=== PATIENT | female | born 1950 | race Caucasian/White ===

== ENCOUNTER 2018-01-14 16:30 | Inpatient (IN) | payer MEDICARE, OTHER ==
[2018-01-14] MEDS: SOD CHLORIDE 0.9% 1,000 ML IV (16:47)
[2018-01-14] MEDS: ONDANSETRON 4 MG INJ IV ×2 (16:47→17:54)
[2018-01-14] MEDS: NALOXONE (0.4 MG/ML) INJ IV (16:47)
[2018-01-14 16:59] LABS: ADD MAN DIFF? NO
[2018-01-14 17:01] LABS: BASOPHIL # 0.1 10^3/ul (0.0-0.1); BASOPHILS % 0.5 % (0.0-2.0); EOSINOPHILS # 0.1 10^3/ul (0.0-0.5); EOSINOPHILS % 0.5 % (0.0-7.0); HEMATOCRIT 36.7 % (37.0-47.0); HEMOGLOBIN 11.5 g/dl (12.0-16.0); LYMPHOCYTES # 2.3 10^3/ul (0.8-2.9); LYMPHOCYTES % 14.9 % (15.0-51.0); MEAN CORPUSCULAR HGB CONC 31.3 g/dl (32.0-37.0); MEAN CORPUSCULAR VOLUME 92.7 fl (82.0-101.0); MEAN PLATELET VOLUME 10.2 fl (7.4-10.4); MONOCYTE # 1.5 10^3/ul (0.3-0.9); MONOCYTES % 10.2 % (0.0-11.0); NEUTROPHIL # 11.1 10^3/ul (1.6-7.5); NEUTROPHILS % 73.2 % (39.0-77.0); PLATELET COUNT 340 10^3/UL (140-415); RED BLOOD COUNT 3.96 10^6/ul (4.20-5.40); RED CELL DISTRIBUTION WIDTH 15.2 % (11.5-14.5)
[2018-01-14 17:01] LABS: WHITE BLOOD COUNT 15.2 10^3/ul (4.8-10.8)
[2018-01-14 17:31] LABS: ALANINE AMINOTRANSFERASE 19 IU/L (13-69); ALBUMIN 4.1 g/dl (3.3-4.9); ALBUMIN/GLOBULIN RATIO 1.41; ALKALINE PHOSPHATASE 87 IU/L (42-121); ANION GAP 32 (8-16); ASPARTATE AMINO TRANSFERASE 50 IU/L (15-46); BILIRUBIN,INDIRECT 0.1 mg/dl (0-1.1); BILIRUBIN,TOTAL 0.1 mg/dl (0.2-1.3); BLOOD UREA NITROGEN 69 mg/dl (7-20); CALCIUM 8.2 mg/dl (8.4-10.2); CARBON DIOXIDE 12 mmol/L (21-31); CHLORIDE 101 mmol/L (97-110); GLUCOSE 66 mg/dl (70-220); POTASSIUM 4.5 mmol/L (3.5-5.1); SODIUM 140 mmol/L (135-144)
[2018-01-14 17:33] LABS: ACETAMINOPHEN < 10.0 ug/ml (10.0-30.0); ETHANOL < 10.0 mg/dl; SALICYLATE < 1.0 mg/dl (5.0-30.0)
[2018-01-14] MEDS: NALOXONE 2 MG SYG IV (17:49)
[2018-01-14 17:59] LABS: AADO2 Arterial 20.2 mmHg (7.0-24.0); Allen Test ACCEPTAB; Arterial Base Excess -16.9 mmol/L (-3.0-3); Arterial Blood Gas Oxygen Sat 95.2 mmHG (95.0-98.0); Arterial COHb 0.3 % (0.0-3.0); Arterial Fraction of Oxyhgb 94.7 % (93.0-99.0); Arterial HCO3 11.5 mmol/L (22.0-26.0); Arterial MetHb 0.2 % (0.0-1.5); Arterial Total Hemglobin 12.4 g/dl (12.0-18.0); Arterial pCO2 36.1 mmhg (35-45); MODE ROOM AIR; Site Right Radial
[2018-01-14 18:13] LABS: BENZODIAZEPINES Negative (NEGATIVE)
[2018-01-14 18:14] LABS: ADD UMIC YES; UR ASCORBIC ACID NEGATIVE (NEGATIVE); UR BACTERIA FEW /HPF (NONE SEEN); UR BILIRUBIN (Dip) NEGATIVE (NEGATIVE); UR BLOOD (Dip) 2+ mg/dL (NEGATIVE); UR CLARITY CLOUDY (CLEAR); UR COLOR YELLOW (YELLOW); UR GLUCOSE (Dip) NEGATIVE (NEGATIVE); UR KETONES (Dip) 2+ mg/dL (NEGATIVE); UR LEUKOCYTE ESTERASE (Dip) 3+ Leu/ul (NEGATIVE); UR NITRITE (Dip) NEGATIVE (NEGATIVE); UR RBC 1 /HPF (0-5); UR SPECIFIC GRAVITY (Dip) 1.014 (1.003-1.030); UR TOTAL PROTEIN (Dip) 1+ mg/dl (NEGATIVE); UR UROBILINOGEN (Dip) NEGATIVE (NEGATIVE); UR WBC > 182 /HPF (0-5)
[2018-01-14 18:16] LABS: AMPHETAMINE/METHAMPHETAMINE Negative (NEGATIVE); BARBITURATES Negative (NEGATIVE); CANNABINOIDS Negative (NEGATIVE); COCAINE Negative (NEGATIVE); OPIATES Negative (NEGATIVE)
[2018-01-14 18:21] LABS: FREE THYROXINE INDEX (Calc) 1.61 ug/ml (0.65-3.89); T3 UPTAKE 38.4 % (23.5-40.5); T4 (THYROXINE) 4.2 ug/dl (5.5-11.0)
[2018-01-14] MEDS: DEXTROSE 50% 50 ML SYRINGE IV (18:38)
[2018-01-14] MEDS: LORAZEPAM 2 MG INJ IV (18:38)
[2018-01-14 19:07] LABS: LACTIC ACID 0.6 mmol/L (0.5-2.0)
[2018-01-14 19:20] LABS: TROPONIN-I 0.013 ng/ml (0.00-0.12)
[2018-01-14] MEDS: PIPER-TAZO 3.375 GM IV (PMX) 100 ML IVPB (19:32)
[2018-01-14] MEDS: VANCOMYCIN 1 GM (PMX) 250 ML IVPB (19:33)
[2018-01-14] MEDS ORDERED: NORepinephrine 8MG/250 ML (PMX 250 ML IV (20:00)
[2018-01-14] MEDS: LACTATED RINGER'S 1,000 ML IV ×3 (20:36)
[2018-01-14] MEDS ORDERED: VANCOMYCIN IV PER PHARMACY XX (22:00)
[2018-01-14] MEDS: DEXAMETHASONE 4 MG/ML 1 ML INJ IV (22:02)
[2018-01-14 22:12] LABS: LACTIC ACID < 0.5 mmol/L (0.5-2.0)
[2018-01-14 23:06] LABS: LACTIC ACID 3.5 mmol/L (0.5-2.0)
[2018-01-15] MEDS: VANCOMYCIN 1 GM in 250 ML IVPB ×2 (01:00→03:43)
[2018-01-15] MEDS: PIPER-TAZO 2.25 GM (PMX) 50 ML IVPB ×3 (06:58→21:48)
[2018-01-15] MEDS: LEVOTHYROXINE 100 MCG TAB PO (06:59)
[2018-01-15] MEDS: LIOTHYRONINE 5 MCG TAB PO (08:12)
[2018-01-15] MEDS: predniSONE 10 MG TAB PO (08:12)
[2018-01-15 08:23] LABS: LACTIC ACID < 0.5 mmol/L (0.5-2.0)
[2018-01-15 09:05] LABS: AADO2 Arterial 90.5 mmHg (7.0-24.0); Allen Test ACCEPTAB; Arterial Base Excess -17.4 mmol/L (-3.0-3); Arterial Blood Gas Oxygen Sat 97.8 mmHG (95.0-98.0); Arterial COHb 0.4 % (0.0-3.0); Arterial Fraction of Oxyhgb 97.2 % (93.0-99.0); Arterial HCO3 9.8 mmol/L (22.0-26.0); Arterial MetHb 0.2 % (0.0-1.5); Arterial Total Hemglobin 11.1 g/dl (12.0-18.0); Arterial pCO2 27.8 mmhg (35-45); MODE NASAL CANNULA; Site Right Radial
[2018-01-15] MEDS: LACTATED RINGER'S 500 ML IV ×2 (10:06→15:50)
[2018-01-15] MEDS: HYDROCORTISONE 100 MG INJ IV ×3 (10:13→21:48)
[2018-01-15] MEDS: ALBUTEROL 0.083% (NEB) 2.5 MG/3 ML AMP HHN (11:47)
[2018-01-15 14:52] LABS: ANION GAP 28 (8-16); BLOOD UREA NITROGEN 57 mg/dl (7-20); CALCIUM 8.3 mg/dl (8.4-10.2); CARBON DIOXIDE 11 mmol/L (21-31); CHLORIDE 112 mmol/L (97-110); CREATININE 2.28 mg/dl (0.44-1.00); GLUCOSE 93 mg/dl (70-220); POTASSIUM 4.3 mmol/L (3.5-5.1); SODIUM 147 mmol/L (135-144)
[2018-01-16 03:52] LABS: AADO2 Arterial 72.2 mmHg (7.0-24.0); Allen Test ACCEPTAB; Arterial Base Excess -16.3 mmol/L (-3.0-3); Arterial Blood Gas Oxygen Sat 98.3 mmHG (95.0-98.0); Arterial COHb 0.2 % (0.0-3.0); Arterial Fraction of Oxyhgb 97.9 % (93.0-99.0); Arterial HCO3 9.9 mmol/L (22.0-26.0); Arterial MetHb 0.2 % (0.0-1.5); Arterial pCO2 25.5 mmhg (35-45); MODE NASAL CANNULA; Site Right Radial
[2018-01-16] MEDS: PIPER-TAZO 2.25 GM (PMX) 50 ML IVPB ×3 (05:25→21:03)
[2018-01-16] MEDS: HYDROCORTISONE 100 MG INJ IV ×3 (05:26→21:03)
[2018-01-16 05:44] LABS: ADD MAN DIFF? NO
[2018-01-16 05:54] LABS: BASOPHIL # 0.1 10^3/ul (0.0-0.1); BASOPHILS % 0.4 % (0.0-2.0); HEMATOCRIT 37.2 % (37.0-47.0); HEMOGLOBIN 11.6 g/dl (12.0-16.0); LYMPHOCYTES # 0.9 10^3/ul (0.8-2.9); LYMPHOCYTES % 6.4 % (15.0-51.0); MEAN CORPUSCULAR HEMOGLOBIN 28.6 pg (29.0-33.0); MEAN CORPUSCULAR HGB CONC 31.2 g/dl (32.0-37.0); MEAN CORPUSCULAR VOLUME 91.9 fl (82.0-101.0); MEAN PLATELET VOLUME 10.4 fl (7.4-10.4); MONOCYTE # 0.9 10^3/ul (0.3-0.9); MONOCYTES % 5.9 % (0.0-11.0); NEUTROPHIL # 12.3 10^3/ul (1.6-7.5); NEUTROPHILS % 85.9 % (39.0-77.0); PLATELET COUNT 335 10^3/UL (140-415); RED BLOOD COUNT 4.05 10^6/ul (4.20-5.40); RED CELL DISTRIBUTION WIDTH 15.9 % (11.5-14.5)
[2018-01-16 05:54] LABS: WHITE BLOOD COUNT 14.3 10^3/ul (4.8-10.8)
[2018-01-16 06:11] LABS: ALANINE AMINOTRANSFERASE 45 IU/L (13-69); ALBUMIN 3.9 g/dl (3.3-4.9); ALKALINE PHOSPHATASE 106 IU/L (42-121); ANION GAP 26 (8-16); ASPARTATE AMINO TRANSFERASE 56 IU/L (15-46); BLOOD UREA NITROGEN 34 mg/dl (7-20); CALCIUM 9.5 mg/dl (8.4-10.2); CARBON DIOXIDE 12 mmol/L (21-31); CHLORIDE 122 mmol/L (97-110); CREATININE 1.31 mg/dl (0.44-1.00); GLUCOSE 122 mg/dl (70-220); POTASSIUM 3.9 mmol/L (3.5-5.1); SODIUM 156 mmol/L (135-144); TOTAL PROTEIN 6.9 g/dl (6.1-8.1)
[2018-01-16] MEDS: SODIUM BICARBONATE (IV ADD) 50 MEQ in DEXTROSE 5%-0.45% NACL 1,000 ML IV (06:14)
[2018-01-16] MEDS: LEVOTHYROXINE 100 MCG TAB PO (07:00)
[2018-01-16] MEDS ORDERED: METHYLPREDNISOLONE 40 MG INJ IV (08:30)
[2018-01-16] MEDS: SALMETEROL/FLUTICASONE 250/50 INHA INH ×2 (09:00→20:13)
[2018-01-16] MEDS: LEVOFLOXACIN 500MG/D5W (PMX) 100 ML IVPB (09:12)
[2018-01-16] MEDS: DEXTROSE 5% 500 ML IV (09:12)
[2018-01-16] MEDS: LACTATED RINGER'S 250 ML IV (10:24)
[2018-01-16] MEDS: OXCARBAZEPINE 300 MG TAB PO ×2 (10:52→20:12)
[2018-01-16] MEDS: SERTRALINE 100 MG TAB PO (10:52)
[2018-01-16] MEDS: TOBRAMYCIN 0.3% 5 ML OPH BOTH EYES ×4 (10:52→20:13)
[2018-01-16] MEDS: VANCOMYCIN 750 MG in DEXTROSE 5% 150 ML IVPB (12:07)
[2018-01-16] MEDS: LIOTHYRONINE 5 MCG TAB PO (13:55)
[2018-01-16] MEDS: LAMOTRIGINE 100 MG TAB PO ×2 (13:55→20:12)
[2018-01-16] MEDS: ATORVASTATIN 20 MG TAB PO (20:12)
[2018-01-17] MEDS: SODIUM BICARBONATE (IV ADD) 50 MEQ in DEXTROSE 5%-0.45% NACL 1,000 ML IV (04:26)
[2018-01-17 05:13] LABS: AADO2 Arterial 79.1 mmHg (7.0-24.0); Allen Test ACCEPTAB; Arterial Base Excess -4.6 mmol/L (-3.0-3); Arterial Blood Gas Oxygen Sat 95.7 mmHG (95.0-98.0); Arterial COHb 0.5 % (0.0-3.0); Arterial Fraction of Oxyhgb 94.8 % (93.0-99.0); Arterial HCO3 19.7 mmol/L (22.0-26.0); Arterial MetHb 0.4 % (0.0-1.5); Arterial Total Hemglobin 7.7 g/dl (12.0-18.0); MODE NASAL CANNULA; Site Right Radial
[2018-01-17] MEDS: HYDROCORTISONE 100 MG INJ IV ×3 (06:15→23:31)
[2018-01-17] MEDS: LEVOTHYROXINE 100 MCG TAB PO (06:15)
[2018-01-17] MEDS: PIPER-TAZO 2.25 GM (PMX) 50 ML IVPB (06:15)
[2018-01-17 06:29] LABS: ADD MAN DIFF? NO
[2018-01-17 06:35] LABS: BASOPHILS % 0.2 % (0.0-2.0); HEMOGLOBIN 11.3 g/dl (12.0-16.0); LYMPHOCYTES # 1.2 10^3/ul (0.8-2.9); LYMPHOCYTES % 12.4 % (15.0-51.0); MEAN CORPUSCULAR HEMOGLOBIN 28.6 pg (29.0-33.0); MEAN CORPUSCULAR HGB CONC 32.3 g/dl (32.0-37.0); MEAN CORPUSCULAR VOLUME 88.6 fl (82.0-101.0); MEAN PLATELET VOLUME 10.7 fl (7.4-10.4); MONOCYTE # 0.9 10^3/ul (0.3-0.9); MONOCYTES % 9.5 % (0.0-11.0); NEUTROPHIL # 7.5 10^3/ul (1.6-7.5); NEUTROPHILS % 76.8 % (39.0-77.0); PLATELET COUNT 295 10^3/UL (140-415); RED BLOOD COUNT 3.95 10^6/ul (4.20-5.40); RED CELL DISTRIBUTION WIDTH 16.2 % (11.5-14.5)
[2018-01-17 06:35] LABS: WHITE BLOOD COUNT 9.8 10^3/ul (4.8-10.8)
[2018-01-17 06:58] LABS: LACTIC ACID 0.8 mmol/L (0.5-2.0)
[2018-01-17 06:58] LABS: AMMONIA 23 umol/l (9-30)
[2018-01-17 07:04] LABS: ALANINE AMINOTRANSFERASE 37 IU/L (13-69); ALBUMIN 3.1 g/dl (3.3-4.9); ALBUMIN/GLOBULIN RATIO 1.14; ALKALINE PHOSPHATASE 101 IU/L (42-121); ANION GAP 19 (8-16); ASPARTATE AMINO TRANSFERASE 31 IU/L (15-46); BILIRUBIN,INDIRECT 0.1 mg/dl (0-1.1); BILIRUBIN,TOTAL 0.1 mg/dl (0.2-1.3); BLOOD UREA NITROGEN 20 mg/dl (7-20); CALCIUM 9.9 mg/dl (8.4-10.2); CARBON DIOXIDE 21 mmol/L (21-31); CHLORIDE 121 mmol/L (97-110); CREATININE 0.89 mg/dl (0.44-1.00); GLUCOSE 122 mg/dl (70-220); POTASSIUM 3.4 mmol/L (3.5-5.1); SODIUM 158 mmol/L (135-144); TOTAL PROTEIN 5.8 g/dl (6.1-8.1)
[2018-01-17] MEDS: SALMETEROL/FLUTICASONE 250/50 INHA INH ×2 (09:32→22:09)
[2018-01-17] MEDS: LEVOFLOXACIN 500MG/D5W (PMX) 100 ML IVPB (09:33)
[2018-01-17] MEDS: LIOTHYRONINE 5 MCG TAB PO (09:34)
[2018-01-17] MEDS: OXCARBAZEPINE 300 MG TAB PO ×2 (09:34→22:43)
[2018-01-17] MEDS: SERTRALINE 100 MG TAB PO (09:34)
[2018-01-17] MEDS: LAMOTRIGINE 100 MG TAB PO ×2 (09:35→22:38)
[2018-01-17] MEDS: TOBRAMYCIN 0.3% 5 ML OPH BOTH EYES ×4 (09:36→22:08)
[2018-01-17] MEDS: DEXTROSE 5% 1,000 ML IV ×2 (10:32→22:25)
[2018-01-17] MEDS: PIPER-TAZO 3.375 GM IV (PMX) 100 ML IVPB ×3 (12:18→23:32)
[2018-01-17] MEDS: POTASSIUM CHLORIDE (SR) 20 MEQ TAB PO (12:58)
[2018-01-17] MEDS: VANCOMYCIN 1.25 GM in SOD CHLORIDE 0.9% 250 ML IVPB (13:06)
[2018-01-17] MEDS: MUPIROCIN 2% 22 GM OINT TOP ×2 (13:30→23:32)
[2018-01-17] MEDS: ATORVASTATIN 20 MG TAB PO (22:38)
[2018-01-18] MEDS: LEVOTHYROXINE 100 MCG TAB PO (06:38)
[2018-01-18] MEDS: HYDROCORTISONE 100 MG INJ IV ×3 (06:38→21:47)
[2018-01-18] MEDS: PIPER-TAZO 3.375 GM IV (PMX) 100 ML IVPB ×2 (06:38→11:58)
[2018-01-18] MEDS: DEXTROSE 5% 1,000 ML IV ×2 (06:51→17:16)
[2018-01-18] MEDS: LEVOFLOXACIN 500MG/D5W (PMX) 100 ML IVPB (08:25)
[2018-01-18] MEDS: LIOTHYRONINE 5 MCG TAB PO (08:25)
[2018-01-18] MEDS: LAMOTRIGINE 100 MG TAB PO ×2 (08:25→21:45)
[2018-01-18] MEDS: SERTRALINE 100 MG TAB PO (08:26)
[2018-01-18] MEDS: OXCARBAZEPINE 300 MG TAB PO ×2 (08:26→21:46)
[2018-01-18] MEDS: TOBRAMYCIN 0.3% 5 ML OPH BOTH EYES ×4 (08:27→21:46)
[2018-01-18] MEDS: MUPIROCIN 2% 22 GM OINT TOP ×2 (08:27→21:46)
[2018-01-18] MEDS: SALMETEROL/FLUTICASONE 250/50 INHA INH ×2 (08:28→21:45)
[2018-01-18 09:24] LABS: ADD MAN DIFF? NO
[2018-01-18 09:35] LABS: BASOPHIL # 0.1 10^3/ul (0.0-0.1); BASOPHILS % 0.4 % (0.0-2.0); EOSINOPHILS % 0.3 % (0.0-7.0); HEMATOCRIT 36.3 % (37.0-47.0); HEMOGLOBIN 12.1 g/dl (12.0-16.0); LYMPHOCYTES # 1.4 10^3/ul (0.8-2.9); LYMPHOCYTES % 11.8 % (15.0-51.0); MEAN CORPUSCULAR HGB CONC 33.3 g/dl (32.0-37.0); MEAN CORPUSCULAR VOLUME 87.1 fl (82.0-101.0); MEAN PLATELET VOLUME 10.3 fl (7.4-10.4); MONOCYTE # 0.7 10^3/ul (0.3-0.9); MONOCYTES % 6.1 % (0.0-11.0); NEUTROPHIL # 9.2 10^3/ul (1.6-7.5); NEUTROPHILS % 80.4 % (39.0-77.0); PLATELET COUNT 300 10^3/UL (140-415); RED BLOOD COUNT 4.17 10^6/ul (4.20-5.40)
[2018-01-18 09:35] LABS: WHITE BLOOD COUNT 11.5 10^3/ul (4.8-10.8)
[2018-01-18 10:29] LABS: PHOSPHORUS 1.4 mg/dl (2.5-4.9)
[2018-01-18 10:29] LABS: MAGNESIUM 2.2 mg/dl (1.7-2.5)
[2018-01-18 11:14] LABS: ANION GAP 11 (8-16); BLOOD UREA NITROGEN 18 mg/dl (7-20); CALCIUM 9.5 mg/dl (8.4-10.2); CARBON DIOXIDE 25 mmol/L (21-31); CHLORIDE 115 mmol/L (97-110); CREATININE 0.72 mg/dl (0.44-1.00); GLUCOSE 142 mg/dl (70-220); POTASSIUM 3.3 mmol/L (3.5-5.1); SODIUM 148 mmol/L (135-144)
[2018-01-18] MEDS: POTASSIUM PHOSPHATE 40 MEQ in SOD CHLORIDE 0.9% 250 ML IVPB (13:10)
[2018-01-18] MEDS: ATORVASTATIN 20 MG TAB PO (21:46)
[2018-01-19] MEDS: HYDROCORTISONE 100 MG INJ IV (06:12)
[2018-01-19] MEDS: LEVOTHYROXINE 100 MCG TAB PO (06:12)
[2018-01-19] MEDS: DEXTROSE 5% 1,000 ML IV ×2 (06:36→09:25)
[2018-01-19 09:12] LABS: ADD MAN DIFF? NO
[2018-01-19] MEDS: SALMETEROL/FLUTICASONE 250/50 INHA INH ×2 (09:24→20:26)
[2018-01-19] MEDS: LEVOFLOXACIN 500MG/D5W (PMX) 100 ML IVPB ×2 (09:24→20:00)
[2018-01-19] MEDS: LIOTHYRONINE 5 MCG TAB PO (09:24)
[2018-01-19] MEDS: TOBRAMYCIN 0.3% 5 ML OPH BOTH EYES ×4 (09:24→20:25)
[2018-01-19] MEDS: MUPIROCIN 2% 22 GM OINT TOP ×2 (09:25→20:25)
[2018-01-19] MEDS: LAMOTRIGINE 100 MG TAB PO ×2 (09:25→20:25)
[2018-01-19] MEDS: OXCARBAZEPINE 300 MG TAB PO ×2 (09:25→20:25)
[2018-01-19] MEDS: SERTRALINE 100 MG TAB PO (09:25)
[2018-01-19 09:40] LABS: BASOPHILS % 0.3 % (0.0-2.0); HEMOGLOBIN 12.4 g/dl (12.0-16.0); LYMPHOCYTES # 1.2 10^3/ul (0.8-2.9); LYMPHOCYTES % 8.5 % (15.0-51.0); MEAN CORPUSCULAR HEMOGLOBIN 28.3 pg (29.0-33.0); MEAN CORPUSCULAR HGB CONC 32.6 g/dl (32.0-37.0); MEAN CORPUSCULAR VOLUME 86.8 fl (82.0-101.0); MEAN PLATELET VOLUME 10.5 fl (7.4-10.4); MONOCYTE # 0.8 10^3/ul (0.3-0.9); MONOCYTES % 5.8 % (0.0-11.0); NEUTROPHIL # 12.2 10^3/ul (1.6-7.5); NEUTROPHILS % 84.2 % (39.0-77.0); PLATELET COUNT 316 10^3/UL (140-415); RED BLOOD COUNT 4.38 10^6/ul (4.20-5.40); RED CELL DISTRIBUTION WIDTH 16.2 % (11.5-14.5)
[2018-01-19 09:40] LABS: WHITE BLOOD COUNT 14.5 10^3/ul (4.8-10.8)
[2018-01-19 09:45] LABS: ANION GAP 15 (8-16); BLOOD UREA NITROGEN 21 mg/dl (7-20); CALCIUM 9.6 mg/dl (8.4-10.2); CARBON DIOXIDE 24 mmol/L (21-31); CHLORIDE 113 mmol/L (97-110); CREATININE 0.81 mg/dl (0.44-1.00); GLUCOSE 140 mg/dl (70-220); SODIUM 149 mmol/L (135-144)
[2018-01-19] MEDS: POTASSIUM CHLORIDE 100 ML IVPB ×3 (16:00→23:10)
[2018-01-19] MEDS: ATORVASTATIN 20 MG TAB PO (20:24)
[2018-01-20] MEDS: POTASSIUM CHLORIDE 100 ML IVPB (02:45)
[2018-01-20] MEDS: LEVOTHYROXINE 100 MCG TAB PO (06:18)
[2018-01-20 08:18] LABS: ADD MAN DIFF? NO
[2018-01-20 08:22] LABS: WHITE BLOOD COUNT 17.3 10^3/ul (4.8-10.8)
[2018-01-20 08:22] LABS: BASOPHIL # 0.1 10^3/ul (0.0-0.1); BASOPHILS % 0.4 % (0.0-2.0); EOSINOPHILS # 0.3 10^3/ul (0.0-0.5); EOSINOPHILS % 1.8 % (0.0-7.0); HEMATOCRIT 37.7 % (37.0-47.0); HEMOGLOBIN 12.3 g/dl (12.0-16.0); LYMPHOCYTES # 1.9 10^3/ul (0.8-2.9); LYMPHOCYTES % 11.2 % (15.0-51.0); MEAN CORPUSCULAR HEMOGLOBIN 28.5 pg (29.0-33.0); MEAN CORPUSCULAR HGB CONC 32.6 g/dl (32.0-37.0); MEAN CORPUSCULAR VOLUME 87.5 fl (82.0-101.0); MEAN PLATELET VOLUME 10.4 fl (7.4-10.4); MONOCYTE # 1.2 10^3/ul (0.3-0.9); MONOCYTES % 6.7 % (0.0-11.0); NEUTROPHIL # 13.6 10^3/ul (1.6-7.5); NUCLEATED RED BLOOD CELLS% 0.1 /100WBC (0.0-0.0); PLATELET COUNT 293 10^3/UL (140-415); RED BLOOD COUNT 4.31 10^6/ul (4.20-5.40); RED CELL DISTRIBUTION WIDTH 16.1 % (11.5-14.5)
[2018-01-20] MEDS: SALMETEROL/FLUTICASONE 250/50 INHA INH (08:29)
[2018-01-20] MEDS: LEVOFLOXACIN 500MG/D5W (PMX) 100 ML IVPB (08:29)
[2018-01-20] MEDS: DEXTROSE 5% 1,000 ML IV (08:29)
[2018-01-20] MEDS: MUPIROCIN 2% 22 GM OINT TOP (08:29)
[2018-01-20] MEDS: TOBRAMYCIN 0.3% 5 ML OPH BOTH EYES ×2 (08:29→14:24)
[2018-01-20] MEDS: LIOTHYRONINE 5 MCG TAB PO (08:30)
[2018-01-20] MEDS: predniSONE 20 MG TAB PO (08:30)
[2018-01-20] MEDS: SERTRALINE 100 MG TAB PO (08:30)
[2018-01-20] MEDS: OXCARBAZEPINE 300 MG TAB PO (08:30)
[2018-01-20] MEDS: LAMOTRIGINE 100 MG TAB PO (08:30)
[2018-01-20 08:56] LABS: ANION GAP 15 (8-16); BLOOD UREA NITROGEN 18 mg/dl (7-20); CALCIUM 8.9 mg/dl (8.4-10.2); CARBON DIOXIDE 23 mmol/L (21-31); CHLORIDE 111 mmol/L (97-110); CREATININE 0.69 mg/dl (0.44-1.00); GLUCOSE 124 mg/dl (70-220); POTASSIUM 3.7 mmol/L (3.5-5.1); SODIUM 145 mmol/L (135-144)
[2018-01-20 09:01] LABS: PHOSPHORUS 2.5 mg/dl (2.5-4.9)
[2018-01-20] MEDS: hydrALAzine 20 MG INJ IV (14:30)
== END 2018-01-20 15:57 | DRG 871 ==
LOC: ICU 19:38 → E/R 16:30 → MS4 01-17 21:41
DX: A41.9 Sepsis, unspecified organism (principal); G93.49 Other encephalopathy; N39.0 Urinary tract infection, site not specified; E87.2 Acidosis; N17.9 Acute kidney failure, unspecified; E87.0 Hyperosmolality and hypernatremia; Z66 Do not resuscitate; E03.9 Hypothyroidism, unspecified; I10 Essential (primary) hypertension
CPT/HCPCS: 36415; 36600; 70450; 71045; 76937; 80048; 80053; 80306; 80307; 81001; 82140; 82533; 82803; 82962; 83605; 83735; 84100; 84436; 84443; 84479; 84484; 85025; 87040; 87081; 87086; 92610; 93005; 96374; 96375; 96376; 97162; 99291-25